=== PATIENT | male | born 1980 | race Caucasian/White ===

== ENCOUNTER → 2020-05-28 | Outpatient (CLI) | payer OTHER ==
[~2020-05-28] MED LIST: ISOVUE-370 76% 100ML VIAL As Ordered ONE
--- NOTE | 2020-05-28 15:54 | REPVR ---
PROCEDURE INFORMATION: Exam: CT Neck With Contrast Exam date and time: 05/28/2020 3:24 PM Age: 39 years old Clinical indication: Dyspnea / difficulty breathing; Additional info: Dysphagia, cough, dyspnea, oth sensations/perceptio TECHNIQUE: Imaging protocol: Computed tomography images of the neck with intravenous contrast. Radiation optimization: All CT scans at this facility use at least one of these dose optimization techniques: automated exposure control; mA and/or kV adjustment per patient size (includes targeted exams where dose is matched to clinical indication); or iterative reconstruction. Contrast material: ISOVUE 370; Contrast volume: 100 ml; Contrast route: INTRAVENOUS (IV); COMPARISON: No relevant prior studies available. FINDINGS: Nasopharynx: Unremarkable. Oropharynx: There is enhancement noted and enlargement of the lingual tonsil at the base of the tongue on the right greater than the left best seen on image 301/50 and 51 measuring 16 by 8 mm. This partially obscures the right vallecular. Hypopharynx: Unremarkable. Larynx: Unremarkable. Normal epiglottis. Retropharyngeal space: Unremarkable. Submandibular/Parotid glands: Normal. Glands are normal in size. Thyroid: Normal. No enlarged or calcified nodules. Lymph nodes: Small lymph nodes are noted throughout the neck however, the largest is only 8.5 mm which is not enlarged per strict size criteria. Trachea: Visualized trachea is unremarkable. Lungs: Unremarkable as visualized. Bones/joints: Unremarkable. No acute fracture. Soft tissues: Unremarkable. No significant soft tissue swelling. IMPRESSION: Enhancing tissue noted asymmetric right greater than left base of tongue possibly enlarged lingula tonsil. Electronically signed by: Jaun Rondon On 05/28/2020 15:54:09 PM
--- NOTE | 2020-05-28 16:12 | REP ---
INDICATION: DYSPHAGIA,COUGH, DYSPNEA, OTH SENSATIONS/PERCEPTIO COMPARISON: None TECHNIQUE: Axial noncontrast images from the thoracic inlet to the upper abdomen with coronal and sagittal reformations. FINDINGS: The bilateral lung chowdhury are well aerated, symmetric and clear. No consolidation, suspicious nodule or mass lesion appreciated. No pleural effusion. No pneumothorax. Tracheobronchial tree is patent. No axillary, hilar, or mediastinal adenopathy. Thoracic aorta, pulmonary vasculature, and heart/pericardium are normal. Musculoskeletal structures are intact and without acute osseous abnormality. Limited upper abdomen demonstrates normal bilateral adrenal glands. IMPRESSION: Normal noncontrast chest CT. No acute mediastinal or pleuroparenchymal process. <Electronically signed by Bairon Waggoner > 05/28/20 [id number]
== END ==
LOC: M RAD 14:54
PROVIDERS: ATTEND Physician Assistant
DX: R13.10 Dysphagia, unspecified (principal); R44.8 Other symptoms and signs involving general sensations and perceptions; R05 Cough; J35.1 Hypertrophy of tonsils
CPT/HCPCS: 70491; 71250; Q9967

== ENCOUNTER → 2020-09-30 | Outpatient (CLI) | payer OTHER ==
[~2020-09-30] MED LIST changes: +AMIT50TA PO; +ATOR40TA75 PO; -ISOVUE-370 76% 100ML VIAL As Ordered ONE; +MAXA10TA14 PO
== END ==
LOC: M LABSMTC 11:22
PROVIDERS: ATTEND Anesthesiology
DX: Z01.812 Encounter for preprocedural laboratory examination (principal); Z20.822 Contact with and (suspected) exposure to COVID-19

== ENCOUNTER 2020-10-05 09:43 | Day surgery (SDC) | payer OTHER ==
[~2020-10-05] VITALS: Ht 190.5 cm; Wt 117.9 kg
[2020-10-05] MEDS ORDERED: fentaNYL 100 MCG/2 ML INJECTION (J3010) As Ordered ONE (10:39)
[2020-10-05] MEDS ORDERED: LIDOCAINE 2% 100MG/5ML SDV (FOR ANES.) As Ordered ONE (10:39)
[2020-10-05] MEDS ORDERED: ROCURONIUM BROMIDE 50 MG/5 ML VIAL As Ordered ONE (10:39)
[2020-10-05] MEDS ORDERED: MIDAZOLAM INJ 2MG/2ML VIAL (J2250 PER 1MG) As Ordered ONE (10:39)
[2020-10-05] MEDS ORDERED: propofoL 200 MG/20 ML VIAL As Ordered ONE (10:39)
[2020-10-05] MEDS ORDERED: LR 1,000 ML IV ONE (11:30)
[2020-10-05] MEDS ORDERED: EPINEPHrine 1MG/ML INJ 30ML MD-VIAL As Ordered ONE (12:48)
[2020-10-05] MEDS ORDERED: LIDOCAINE W/EPINEPHRINE 1% 20ML VIAL As Ordered ONE (12:48)
[2020-10-05] MEDS ORDERED: CETACAINE SPRAY 5GM As Ordered ONE (12:48)
[2020-10-05] MEDS ORDERED: METHYLENE BLUE 0.5% (5MG/ML) 10 ML AMP (PROVAYBLUE) As Ordered ONE (12:48)
[2020-10-05] MEDS ORDERED: ONDANSETRON 4MG/2ML VIAL As Ordered ONE (13:37)
[2020-10-05] MEDS ORDERED: KETOROLAC 60MG 2ML VIAL As Ordered ONE (13:37)
[2020-10-05] MEDS ORDERED: dexameTHASONE 4 MG/ML 1ML VIAL (J1100 PER 1MG) As Ordered ONE (13:37)
--- NOTE | 2020-10-05 14:07 | RO ---
OPERATIVE NOTE DATE OF OPERATION: 10/05/2020 PREOPERATIVE DIAGNOSIS: Lingual tonsillar hypertrophy with globus sensation. POSTOPERATIVE DIAGNOSIS: Lingual tonsillary hypertrophy with globus sensation. PROCEDURE: Direct laryngoscopy with photomicrographs and biopsy of lingual base of tongue tissue. SURGEON: Ramakrishna Reese MD. BRIAR WOOD SORTER: ANESTHESIA: INDICATION: This is a 40 year old who presents with a foreign body like sensation in his right pharynx for some time now. Examination revealed hypertrophic lingual tonsils markedly filling the vallecula, but there appeared to be some abnormal appearance to it on previous visit with CT scanning suggesting that the right side was more enlarged. It was recommended a direct examination be performed. DESCRIPTION OF PROCEDURE: Satisfactory general endotracheal anesthesia was administered. A double lighted Dedo laryngoscope was inserted in the oropharynx, and it was first used to inspect the oropharynx and advanced into the hypopharynx and to the glottis which had an entirely normal examination. The scope was then retracted back to the area of the vallecula where it was advanced into the vallecula between the epiglottis which appeared normal on its lingual surface and the base of tongue. There was a marked enlargement of the lingual tonsil tissue noted on both sides, perhaps even a little bit more on the left than the right on this examination. The scope was then placed in position for good visualization of the vallecula, and it was suspended with a Lewey apparatus. Several biopsies were taken from both the right lingual tonsil as well as the left. There did not appear to be any induration, ulceration, or abnormal tissue consistency by either palpation with the finger or with the biopsy forceps. Tissue did appear to be soft. After two or three minutes of inspection, there was no significant bleeding. The throat was adequately suctioned. The patient was then awakened, extubated, and sent to the recovery room in satisfactory condition. He will return to the office to discuss the results with the biopsies.
[2020-10-05] MEDS ORDERED: fentaNYL 100 MCG/2 ML INJECTION (J3010) IV PRN (14:30)
[2020-10-05] MEDS ORDERED: METOCLOPRAMIDE INJ 10MG/2ML VIAL (J2765 PER 1) IV PRN (14:30)
[2020-10-05] MEDS ORDERED: HYDROcodone/APAP LIQUID 7.5-325MG 15ML UDC (LORTAB ELIXIR) PO PRN (14:30)
[2020-10-05] MEDS ORDERED: LR 1,000 ML IV SCH (14:30)
[2020-10-05] MEDS ORDERED: ONDANSETRON 4MG/2ML VIAL IV PRN (14:30)
[2020-10-05] MEDS ORDERED: PERCOCET 5MG/325MG TAB PO PRN (14:30)
[2020-10-05 15:05] VITALS: BP 130/85
== END 2020-10-05 15:05 | disposition home or self-care (01) ==
LOC: M SDC 09:43
PROVIDERS: ATTEND Specialist
DX: D10.1 Benign neoplasm of tongue (principal); J35.1 Hypertrophy of tonsils; E78.5 Hyperlipidemia, unspecified; Z79.899 Other long term (current) drug therapy
CPT/HCPCS: 31535; 88305; J1100; J1885; J2250; J2405; J3010; Q9968